=== PATIENT | female | born 1995 | race Caucasian/White ===

== ENCOUNTER 2025-03-04 15:55 | Emergency (ER) | payer OTHER ==
[~2025-03-04] VITALS: Ht 167.6 cm; Wt 62.0 kg
[2025-03-04 15:58] VITALS: TEMP 36.7; O2SAT 99
[2025-03-04 16:53] LABS: BASOPHILS % 0.3 % (0.0-2.0); EOSINOPHILS % 0.9 % (0.0-5.0); HEMATOCRIT. 37.3 % (36.0-48.0); HEMOGLOBIN. 12.5 g/dL (12.0-16.0); LYMPHOCYTES % 13.5 % (20.0-50.0); MEAN PLATELET VOLUME 7.7 fl (7.4-10.4); MONOCYTES % 6.8 % (2.0-8.0); NEUTROPHILS % 78.5 % (40.0-76.0); PLATELET 272 x1000/uL (130-400); RED BLOOD CELL COUNT 4.20 mill/uL (4.2-5.4); RED CELL DISTRIBUTION WIDTH 14.3 % (11.6-14.6)
[2025-03-04 17:10] LABS: HCG SCREEN POSITIVE
[2025-03-04 17:20] LABS: CLARITY URINE CLEAR (CLEAR); GLUCOSE URINE 1+ (NEGATIVE); KETONES URINE NEGATIVE (NEGATIVE); PH URINE 7.5 (4.5-8.0); PROTEIN URINE NEGATIVE (NEGATIVE); SPECIFIC GRAVITY URINE 1.008 (1.005-1.030)
[2025-03-04 17:21] LABS: LEUKOCYTE ESTERASE URINE TRACE (NEGATIVE); NITRITE URINE NEGATIVE (NEGATIVE); OCCULT BLOOD URINE 3+ (NEGATIVE); UROBILINOGEN URINE 0.2 E.U./dL (0.2-1.0)
[2025-03-04 17:23] LABS: COLOR URINE STRAW (YELLOW)
[2025-03-04 17:28] LABS: WBC URINE 0-2 /hpf (0-2)
[2025-03-04 17:29] LABS: BACTERIA URINE NONE SEEN; SQUAMOUS EPITHELIAL CELL URINE FEW /lpf (RARE/1+)
[2025-03-04] MEDS: SODIUM CHLORIDE 0.9% 1,000 ML IV ONE (17:39)
[2025-03-04] MEDS: ACETAMINOPHEN 325MG TABLET PO ONE (17:39)
[2025-03-04 17:40] LABS: CREATININE 0.7 mg/dL (0.6-1.0); UREA NITROGEN BLOOD 7 mg/dL (9-23)
[2025-03-04 17:42] LABS: ASPARTATE AMINOTRANSFERASE 20 IU/L (<34); BILIRUBIN DIRECT < 0.1 mg/dL (<=3.0); BILIRUBIN TOTAL 0.3 mg/dL (0.1-1.0); PROTEIN TOTAL 6.6 g/dL (6.0-8.3)
[2025-03-04 17:57] LABS: B-HCG QUANTITATIVE 191443 mIU/mL (<6)
[2025-03-04 18:44] VITALS: BP 105/64; PULSE 99; RESP 12; O2SAT 100
== END 2025-03-04 18:56 | disposition home or self-care (01) ==
LOC: ER 15:55
DX: O26.891 Other specified pregnancy related conditions, first trimester (principal); R10.20 Pelvic and perineal pain unspecified side; Z3A.09 9 weeks gestation of pregnancy; Z90.721 Acquired absence of ovaries, unilateral
CPT/HCPCS: 99284; 96360; 76801; 80076; 80048; 81003; 84703; 84702; 85025; 36415; 76817; J7030; A4606